=== PATIENT | male | born 1945 | race Caucasian/White ===

== ENCOUNTER 2018-03-20 18:34 | Inpatient (IN) | payer OTHER ==
[~2018-03-20] VITALS: Ht 172.7 cm; Wt 79.9 kg
--- NOTE | ~2018-03-20 | HC ---
[facility] [place] [address] CONSULTATION Name: JOSudhirCYRILMATT Room #: 222-P ADM IN M.R.#: [id number] Admission: 03/20/18 Attend Phys: Baldemar Gomez Discharge: Date of : 45 Report #: [id number] THIS REPORT FOR: //name// CC: Ismael Garza DATE OF SERVICE: 03/23/2018 HISTORY OF PRESENT ILLNESS: The patient is a 73-year-old white male admitted with cough, fever, noted to have pneumonia, COPD exacerbation. He is being treated with respiratory treatments, IV Solu-Medrol, IV Levaquin, and IV vancomycin. He is on nasal prong O2, 1.5 liters. We are seeing him in rehabilitation medicine consultation. PAST MEDICAL HISTORY: Includes mild dementia, venous insufficiency. PAST SURGICAL HISTORY: None. MEDICATIONS: Please see the full medication listing. This includes vitamins, herbals, and supplements. ALLERGIES: None. SOCIAL HISTORY: He has no children. He has a niece, who supervises his care. He lives in an apartment alone. The records indicate it is in an independent living apartment; although, the patient says it is an assisted living facility apartment. He has an elevator. He was premorbidly ambulatory without gait aids. He was not on any oxygen HABITS: Prior tobacco history. No history of alcohol abuse. FAMILY HISTORY: Noncontributory. REVIEW OF SYSTEMS: He notes he is starting to feel better. No current chest pain, shortness of breath, abdominal discomfort. He denies any focal extremity pain complaints. He notes some generalized weakness, but he feels he is starting to do a little better. PHYSICAL EXAMINATION: GENERAL: The patient is a 73-year-old thin white male in no obvious distress. VITAL SIGNS: Last recorded temperature is 97.9, pulse is 61, respirations 20, and blood pressure is 128/64. NEUROLOGIC: He is alert, pleasant, and oriented. Nasal prong O2 is in place. Facies are symmetric. Functional range of motion of both upper extremities with strength grade 4 to 4-/5. DTRs are trace to 1. Lower extremities functional range of motion with strength grade 4 to 4-/5. DTRs are trace to 1. He was standby assistance with sit to stand. He ambulated 250 feet min assist without [address] [address] CONSULTATION Name: MATT RODARTE Room #: 222-P [facility] IN M.R.#: [id number] Admission: 03/20/18 Attend Phys: Baldemar Gomez Discharge: Date of : 45 Report #: [id number] a device. He needs min assist for safety. Lower extremity dressing was max assist. ASSESSMENT: The patient is a 73-year-old white male with the following problem list: 1. Pneumonia. 2. Generalized weakness and debilitation. 3. Chronic obstructive pulmonary disease exacerbation. 4. Functional mobility and ADL deficits. PLAN: The patient is currently on IV Solu-Medrol and IV antibiotics. Insurance will need to be checked regarding rehab therapy options. Thank you for asking us to assist in this patient's care. By: [id number] Curt Mcrae MD /PMT
[2018-03-20 18:35] VITALS: BP 151/70
[2018-03-20 19:58] LABS: HEMOGLOBIN 15.8 gm/dL (14.0-18.0); MCH 28.1 pg (26.0-34.0); MCHC 34.4 g/dL (28.0-37.0); MCV 81.7 fL (80.0-100.0); PLATELET COUNT 345 thou/uL (150-400); RBC 5.62 mil/uL (4.50-6.00); RDW 14.5 % (10.5-14.5); WBC 8.3 thou/uL (4.0-11.0)
[2018-03-20 20:02] LABS: BE(vivo) 0.4 mmol/L (-2 to +3); HCO3 24.2 mmol/L (22.0-26.0); PO2 62.1 mmHg (80.0-100.0); pH 7.434 (7.360-7.450); sO2 92.6 % (92.0-98.0)
[2018-03-20 20:03] LABS: ANION GAP 10 mmol/L (7-16); BUN 20 mg/dL (7-18); CALCIUM 9.9 mg/dL (8.5-10.1); CHLORIDE 99 mmol/L (98-107); CO2 27 mmol/L (21-32); CREATININE 1.1 mg/dL (0.7-1.3); GLUCOSE 110 mg/dL (74-106); POTASSIUM 4.6 mmol/L (3.5-5.1); SODIUM 136 mmol/L (136-145)
[2018-03-20 20:11] LABS: ALBUMIN 4.3 g/dL (3.4-5.0); SGOT 18 U/L (15-37); SGPT 22 U/L (30-65); TOTAL BILIRUBIN 0.9 mg/dL (<0.1-1.0); TOTAL PROTEIN 8.8 g/dL (6.4-8.2); TROPONIN-I <0.06 ng/mL (<0.06)
[2018-03-20 20:27] VITALS: BP 151/70
[2018-03-20 20:31] LABS: ABSOLUTE NEUTROPHILS 6.7 thou/uL (1.4-8.2)
[2018-03-20 21:26] VITALS: BP 138/63
[2018-03-20 23:30] LABS: URINE BILIRUBIN NEGATIVE (Negative); URINE BLOOD NEGATIVE (Negative); URINE CLARITY CLEAR; URINE COLOR YELLOW; URINE GLUCOSE-RANDOM* NEGATIVE (Negative); URINE KETONES NEGATIVE (Negative); URINE LEUKOCYTES-REFLEX NEGATIVE (Negative); URINE NITRITE-REFLEX NEGATIVE (Negative); URINE PROTEIN (DIPSTICK) NEGATIVE (Negative); URINE SPECIFIC GRAVITY >= 1.030 (1.005-1.035); URINE UROBILINOGEN 0.2 E.U./dl (0.2-1.0)
[2018-03-21 03:42] VITALS: BP 114/66
[2018-03-21 03:50] LABS: CALCIUM 8.6 mg/dL (8.5-10.1); CREATININE 1.1 mg/dL (0.7-1.3); POTASSIUM 3.9 mmol/L (3.5-5.1)
[2018-03-21 04:16] LABS: HEMATOCRIT 39.3 % (42.0-52.0); MCHC 33.1 g/dL (28.0-37.0); MCV 81.4 fL (80.0-100.0); RBC 4.83 mil/uL (4.50-6.00); RDW 14.2 % (10.5-14.5); WBC 5.9 thou/uL (4.0-11.0)
--- NOTE | 2018-03-21 05:05 | NUR ---
PT ARRIVED TO UNIT APPROX 2200, ADMISSION AND ASSESSMENT COMPLETED, CONSENTS SIGNED. STARTED ON IV FLUIDS, HUNG IV LEVAQUIN AND VANCO ORDERED BY ER. PT IS A&Ox4, FROM AN ASSISTED LIVING FACILITY, AMBULATES WITH A WALKER. SOA WITH MINIMAL EXERTION, LUNG SOUNDS WHEEZY WITH COARSE CRACKLES IN MID-LUNG, ON 2L O2, NORMALLY ON RA. FREQUENT DRY COUGH OVERNIGHT, PT KEEPING HOB ABOVE 20 DEGREES. PT DENIES ANY PAIN OR NAUSEA, REPORTS FEELING FATIGUED. OBTAINED ORDERS FOR RT TREATMENTS, ABX, AND PAIN/NAUSEA MEDS FROM DR. MIX. SENT UA TO LAB. SECOND LACTIC ACID RESULTED CRITICAL HIGH AT 4.5, REPORTED TO DR. MIX, NO ORDERS RECEIVED, REDRAW WAS 2.1. INITIALLY ST IN LOW 100'S, SINUS ARRHYTHMIA WITH PAC'S; HR NOW 80'S, STILL IRREGULAR, SA. NO OTHER CONCERNS, WILL CONTINUE TO MONITOR.
--- NOTE | 2018-03-21 08:25 | EKG ---
[place] [address] [facility] [place] [address] ELECTROCARDIOGRAM REPORT Name: MATT RODARTE Room #: 457-P ADM IN M.R.#: [id number] Admission: 03/20/18 Attend Phys: Baldemar Gomez Discharge: Date of : 45 Report #: [id number] THIS REPORT FOR: //name// [facility] ED Test Date: 2018-03-20 Test Time: 20:10:29 Pat Name: MATT RODARTE Department: Room: [facility] Gender: M Supervisor Whipped Topping: JM : 1945 Requested By: Berenice De La Garza Order Number: [id number] MD: Oral Owens Measurements Intervals [place] Rate: 93 P: 53 WY: 159 QRS: -27 QRSD: 97 T: 93 QT: 312 QTc: 388 Interpretive Statements Sinus rhythm Multiple premature complexes, supraven Borderline left axis deviation Abnormal R-wave progression, early transition Nonspecific ST and T wave abnormality No previous ECG available for comparison Electronically Signed On 03-21-2018 8:25:25 HYDRO EXCAVATION OPERATOR by Oral Owens [email or web address] <ELECTRONICALLY SIGNED> By: Oral Owens MD, [facility] 03/21/18 0825 09 09 Oral Owens MD, [facility] /EPI
[2018-03-21 10:07] VITALS: BP 121/58
--- NOTE | 2018-03-21 11:30 | NUR ---
Assumed pt care at 645. pt was resting at this time. a/ox4 with no issues or concerns. pt has cough with no production, still awaiting sputum sample. will continue to montior.
--- NOTE | 2018-03-21 14:54 | NUR ---
PT ADMITTED RELATED TO PNEUMONIA, CHEST CONGESTION. CM REVIEWED CHART AND SPOKE WITH CARE TEAM. CM MET WITH PT AND SISTER/DPOA AT BEDSIDE THIS DAY. PT IS A&O X4. CM ROLE INTRODUCED. PT INDICATED HE LIVES IN AN INDEPENDENT LIVING APARTMENT AT [facility]. 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 THEY INDICATED NO DME OR HH HX. THEY INDICATED THAT THEY ANTICIPATE [place] RETURNING TO [place]ARTMENT ONCE MEDICALLY STABLE. THEY INDICATED THAT CLINICAL IN FOR COULD BE SENT TO THE FACILITY FOR REVIEW. CM TO FOLLOW INDICATED WITH DC PLANNING.
--- NOTE | 2018-03-21 15:03 | NUR ---
PT ADMITTED RELATED TO PNEUMONIA, CHEST CONGESTION. CM REVIEWED CHART AND SPOKE WITH CARE TEAM. CM MET WITH PT AND SISTER/DPOA AT BEDSIDE THIS DAY. PT IS A&O X4. CM ROLE INTRODUCED. THEY INDICATED PT LIVES IN AN INDEPENDENT LIVING APARTMENT AT [facility]. 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 PT INDICATED NO DME OR HH HX. CARE TEAM INDICATED THAT THEY ANTICPATE PT RETURNING TO [facility] ONCE MEDICALLY STABLE. CM CALLED AND SPOKE WITH STAFF AT [facility] TO ASK IF THEY NEEDED TO ACCESS PT PRIOR TO HIS RETURN AND THEY INDICATED THEY DIDN'T. CM TO FOLLOW INDICATED WITH DC PLANNING.
[2018-03-21 15:29] VITALS: BP 129/69
[2018-03-21 19:25] VITALS: BP 140/71
--- NOTE | 2018-03-22 02:48 | NUR ---
PT SLEPT THROUGH MOST OF THE NIGHT PT USED CALL LIGHT EFFECTIVELY NO ISSUES OVERNIGHT.
[2018-03-22 05:14] VITALS: BP 124/59
[2018-03-22 05:15] VITALS: BP 151/54
[2018-03-22 07:35] VITALS: BP 121/73
--- NOTE | 2018-03-22 10:31 | H ---
[facility] [place] [place] [address] HISTORY AND PHYSICAL Name: MATT RODARTE Room #: 457-P ADM IN M.R.#: [id number] Admission: 03/20/18 Attend Phys: Baldemar Gomez Discharge: Date of : 45 Report #: [id number] THIS REPORT FOR: //name// CC: Ismael Garza DATE OF SERVICE: 03/20/2018 CHIEF COMPLAINT: Cough and shortness of breath. HISTORY OF PRESENT ILLNESS: The patient is a 73-year-old gentleman who was transferred from his senior independent apartment for evaluation of cough, congestion and mild fever. There was report that for 1-2 days, he has had some body aches, nausea, cough, fever, and congestion. No documented temperature was taken. He was evaluated through the Emergency Room and admitted for pneumonia. PAST MEDICAL HISTORY: Mild dementia, venous insufficiency. PAST SURGICAL HISTORY: None. FAMILY HISTORY: Unknown. SOCIAL HISTORY: He has no children. He has a niece that supervises his care here in town. Prior tobacco history, but no alcohol history. ALLERGIES: None. MEDICATIONS: None. REVIEW OF SYSTEMS: He denies headache, chest pain, shortness of breath, abdominal pain, nausea, vomiting, diarrhea, constipation, dysuria, syncope. OBJECTIVE: VITAL SIGNS: Temperature 37.6, pulse 76, respirations 20, blood pressure 121/58, O2 sat 93% on 2 liters. GENERAL: He is an elderly man. He is asleep, but arousable, in no distress. HEAD AND NECK: Unremarkable. LUNGS: Has some scattered rhonchi in the bases. HEART: Regular. ABDOMEN: Soft, normoactive bowel sounds. EXTREMITIES: There is 1+ edema. There is some plaque. Skin changes of venous stasis on the left lower leg. NEUROLOGIC: His cranial nerves intact. Speech is fluent. Motor strength 4/5 throughout. LABORATORY AND X-RAY: Reviewed. [facility] [address] [place] [address] HISTORY AND PHYSICAL Name: MATT RODARTE Room #: 457-P [facility] IN [facility].#: [id number] Admission: 03/20/18 Attend Phys: Baldemar Gomez Discharge: Date of : 45 Report #: [id number] ASSESSMENT: 1. Pneumonia. 2. Venous insufficiency. PLAN: I will continue his empiric antibiotic coverage with Levaquin and vancomycin. He lives in an independent senior apartment, so consider more just community-acquired pneumonia coverage at this point. <ELECTRONICALLY SIGNED> By: Curt Dia MD 03/22/18 1031 1301 1310 Curt Dia MD /nt
--- NOTE | 2018-03-22 13:44 | NUR ---
TOWARDS POC PT A/O X4, VSS, AFEBRILE, DENIES PAIN. PT RECEIVING SCHEDULE BREATHING TX. REMAIN ON 2L O2. NO CONCERNS VOICED. WILL CONTINUE TO MONITOR.
--- NOTE | 2018-03-22 15:11 | NUR ---
PT ASSESSED AND INDICATED THAT THEY WANTED TO COMPLETE ONGOING ASSESSMENT TO RETERMINE IF THEY FELT PT COULD RETURN HOME WITH HOME HEALTH OR NEED A POST ACUTE CARE STAY. 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 CM CALLED AND SPOKE WITH SISTER/DPOA AND SHE INDICATED THAT THEY ARE RECEPTIVE TO POST ACUTE IF RECOMMENDED OR AT LEAST HOME HEALTH SERVICES. CM INDICATED CM WOULD FOLLOW INDICATED WITH DC PLANNING.
[2018-03-22 15:52] VITALS: BP 128/71
[2018-03-22 20:39] VITALS: BP 131/68
--- NOTE | 2018-03-23 03:36 | NUR ---
PT RESTED THROUGHOUT THE NIGHT WITH NO ISSUES OR COMPLAINTS OF PAIN PT USED CALL LIGHT EFFECTIVELY NO ISSUES OVERNIGHT.
[2018-03-23 04:14] VITALS: BP 128/64
[2018-03-23 05:36] LABS: HEMATOCRIT 41.6 % (42.0-52.0); HEMOGLOBIN 14.3 gm/dL (14.0-18.0); MCH 27.8 pg (26.0-34.0); MCHC 34.4 g/dL (28.0-37.0); MCV 80.8 fL (80.0-100.0); RBC 5.15 mil/uL (4.50-6.00); RDW 14.5 % (10.5-14.5); WBC 3.7 thou/uL (4.0-11.0)
[2018-03-23 05:56] LABS: CALCIUM 8.9 mg/dL (8.5-10.1); POTASSIUM 4.1 mmol/L (3.5-5.1)
[2018-03-23 14:06] VITALS: BP 137/69
--- NOTE | 2018-03-23 16:09 | NUR ---
5N INDICATED THAT INSURANCE WILL LIKELY NOT AUTH ACUTE REHAB AND RECOMMENDED THAT WE PURSUE SKILLED OPTIONS WITH PT AND FAMILY FOR POSSIBLE DC WEDNESDAY. CM TO DISCUSS WITH PT AND SISTER/DPOA. CM TO FOLLOW INDICATED WITH DC PLANNING.
--- NOTE | 2018-03-23 17:22 | NUR ---
TOWARDS POC PT A/O X4, VSS, AFEBRILE, DENIES PAIN. NO SOA. REMAINED ON 1.5L O2. NO CONCERNS VOICED. PT TELE DC'D PER PHYSICIAN. PT TO XFER TO SENIOR SUITE. REPORT CALLED APPROPRIATELY.
--- NOTE | 2018-03-23 18:39 | NUR ---
PATIENT TRANSFERRED TO UNIT. REPORT GIVEN BY NURSE ROM. PATIENT ORIENTED AND SETTLED. CALL LIGHT AND BELONGINGS WITHIN REACH.
[2018-03-23 19:09] VITALS: BP 123/57
[2018-03-23 21:05] VITALS: BP 142/64
--- NOTE | 2018-03-24 05:05 | NUR ---
PATIENT ALERT AND ORIENTED X4. LLEXT SCALEY. DRESSING TALEN OFF AMD ;EFT OPEN TO AIR. HAD MOIST AREA ON LEG BUT IS NOT DRY. O2 SAT AT BEGINNING OF SHIFT WAS ONLY 89. PUT ON 2 LITERS OF O2. PATIENT UP IN ROOM. DENIES PAIN. SLEPT OFF AND ON DURING NIGHT.
[2018-03-24 08:30] VITALS: BP 134/71
--- NOTE | 2018-03-24 09:10 | NUR ---
PT IS A&0X4, AMB STEADY, USES CALL LIGHT FOR NEEDS, OFF 02, SATTING WNL, EDUCATION GIVEN ON DEEP SLOWING BREATHING AND SITTING AT EDGE OF BED BEFORE RISING, ENCOURAGED HIM TO USE CALL LIGHT FOR ANY NEEDS. AM CREAM NOT IN ROOM, NOR PYXIS, SENT NOTE TO RX
--- NOTE | 2018-03-24 12:29 | NUR ---
TITUS reviewed chart and spoke with nursing and attending physician. [facility] and is progressing towards goals for discharge. Discharge to SNF is anticipated for tomorrow pending insurance authorization. TITUS met with pt and family at bedside to discuss post-acute placement. Pt and family SNF preferences are [facility], [facility] and [facility]. TITUS spoke with Alyssa in admissions at [facility], who states they will not have any male beds available until next week. TITUS spoke with Prabha in admissions at [facility] and Kia in admissions at [facility], who both state they will have beds available. TITUS met with pt and family at bedside to provide update. Pt and family's choice is [facility]. TITUS faxed clinical and therapy info to the facility for review. Awaiting call back from facility at this time. TITUS is following to assist as needed with discharge planning.
--- NOTE | 2018-03-24 18:29 | NUR ---
CALL LIGHT: PT'S CALL LIGHT IS NOT WORKING YET CONTROLS FOR TELEVISION AND LIGHTS ARE SUCCESSFUL. CALL LIGHT WORKS ON THE BEDRAILS AND HE HAS BEEN USING THESE. ENTERED WORK ORDER AROUND 0 AND WILL ALERT NIGHT STAFF, HE ALSO HAS A DC AT HIS TABLE
[2018-03-24 18:53] VITALS: BP 122/91
--- NOTE | 2018-03-25 04:11 | NUR ---
ASSUMED CARE OF PATIENT AT 1900. VSS. ASSESSMENT COMPLETED AT 2021 AND IS DOCUMENTED. PT UP IN THE MIDDLE OF THE NIGHT TO AMBULATE IN THE HALLWAY, AND THEN BACK TO BED. LEFT FA PIV INFUSED IV ABT WITHOUT COMPLICATION AND IS CURRENTLY SALINE LOCKED. PT DENIES PAIN THIS SHIFT. PT CURRENTLY SLEEPING SOUNDLY IN BED IN NO ACUTE DISTRESS. CALL LIGHT WITHIN REACH. BED LOCKED AND IN LOWEST POSITION. WCTM.
[2018-03-25 08:18] VITALS: BP 112/66
--- NOTE | 2018-03-25 08:24 | NUR ---
ASSUMED PT CARE AT 0700. ASSESSMENT COMPLETED AND IS CHARTED. VSS. HEART WAS FOUND TO BE IRREGULAR. PT IS AWAKE, ALERT/ORIENTED X4. REPORTS SOME CHEST DISCOMFORT RATED 5/10. REPORTS A NON-PRODUCTIVE COUGH. ALSO REPORTS SOME SHORTNESS OF BREATH AT REST. DOES NOT APPEAR IN ANY ACUTE DISTRESS AT THIS TIME. PT IS ON ROOM AIR O2. WILL CONTINUE TO MONITOR.
[2018-03-25] MEDS ORDERED: LEVAQUIN 7750 MG/152 IV (08:25)
[2018-03-25] MEDS ORDERED: PREDNISONE 20 M20 MG PO (08:27)
[2018-03-25] MEDS ORDERED: TRIAMCINOLONE A15 G3 TOP (08:27)
[2018-03-25] MEDS ORDERED: ACETAMINOPHEN325 M1 PO (08:27)
[2018-03-25] MEDS ORDERED: IPRAT-ALBUT 0.5-3 ML INH (08:29)
--- NOTE | 2018-03-25 08:47 | NUR ---
DISCHARGE PLANNING. ANTICIPATED DISCHARGE TODAY TO [facility] UNIT, PENDING INSURANCE AUTH. CALL PLACED TO DINGLE TO NOTIFY THAT PATIENT WILL BE DISCHARGING TO [facility] ON IV ABX FOR 5-7 DAYS LONGER POST DISCHARGE FROM HOSPITAL. DISCHARGE ORDERS AND DISCHARGE SUMMARY FAXED TO [facility], VERIFIED RECEIVED. CHART COPY COMPLETED PER DEVELOPMENT WRITER. WILL FACILITATE TRANSPORTATION ONCE INSURANCE AUTH OBTAINED. UNIT SW AWARE.
--- NOTE | 2018-03-25 09:48 | NUR ---
DISCHARGE NOTE: TITUS reviewed chart and spoke with nursing and attending physician. Pt is medically stable for discharge to post-acute today. Discharge orders faxed to [facility]. TITUS left voice message for admissions at the facility. Chart copy ordered. Awaiting insurance authorization and transportation time. TITUS is following to assist as needed with discharge planning.
--- NOTE | 2018-03-25 12:00 | NUR ---
PT DOING WELL. UP AND AROUND IN ROOM. NO NEW CONCERNS OR COMPLAINTS.
--- NOTE | 2018-03-25 15:50 | NUR ---
DISMISSED PT IN STABLE CONDITION VIA [facility] TRANSPORTATION [facility] WITH IV IN PLACE.
== END 2018-03-25 15:51 | DRG 193 ==
LOC: ER 18:34 → 4W 20:58 → EROBS 20:58 → 4W 21:38 → SICU 03-23 18:39
PROVIDERS: Internal Medicine Geriatric Medicine; Physician Assistant; ADMIT Internal Medicine
DX: J18.9 Pneumonia, unspecified organism (principal); J96.00 Acute respiratory failure, unspecified whether with hypoxia or hypercapnia; J44.1 Chronic obstructive pulmonary disease with (acute) exacerbation; J44.0 Chronic obstructive pulmonary disease with (acute) lower respiratory infection; Y95 Nosocomial condition; F03.90 Unspecified dementia, unspecified severity, without behavioral disturbance, psychotic disturbance, mood disturbance, and anxiety; R26.9 Unspecified abnormalities of gait and mobility; I87.2 Venous insufficiency (chronic) (peripheral); Z87.891 Personal history of nicotine dependence; Z79.899 Other long term (current) drug therapy
CPT/HCPCS: 10045; 15002

== ENCOUNTER 2020-07-03 20:14 | Emergency (ER) | payer MEDICARE ==
[~2020-07-03] VITALS: Ht 172.7 cm; Wt 68.5 kg
[~2020-07-03 20:14] MED LIST: ACETAMINOPHEN325 M1 PO; IPRAT-ALBUT 0.5-3 ML INH; LEVAQUIN 7750 MG/152 IV; PREDNISONE 20 M20 MG PO; TRIAMCINOLONE A15 G3 TOP
[2020-07-03 21:03] LABS: ABSOLUTE NEUTROPHILS 4.5 thou/uL (1.4-8.2); EOSINOPHILS 11.5 % (0.0-3.0); HEMATOCRIT 41.2 % (42.0-52.0); HEMOGLOBIN 13.8 gm/dL (14.0-18.0); LYMPHOCYTES 20.1 % (24.0-44.0); MCH 29.1 pg (26.0-34.0); MCHC 33.6 g/dL (28.0-37.0); MCV 86.6 fL (80.0-100.0); MONOCYTES 12.3 % (1.0-8.0); PLATELET COUNT 332 thou/uL (150-400); POLYS 55.1 % (36.0-66.0); RBC 4.76 mil/uL (4.50-6.00); RDW 14.6 % (10.5-14.5); WBC 8.2 thou/uL (4.0-11.0)
[2020-07-03 21:12] LABS: CREATININE 1.3 mg/dL (0.7-1.3)
[2020-07-03 21:18] LABS: ALBUMIN 3.3 g/dL (3.4-5.0); TOTAL BILIRUBIN 0.3 mg/dL (0.2-1.0)
[2020-07-03] MEDS ORDERED: KLOR-CON 1010 MEQ PO (21:30)
[2020-07-03] MEDS ORDERED: MILK OF MA400 MG/5 M PO (21:30)
[2020-07-03] MEDS ORDERED: LASIX 20 MG TAB20 MG PO (21:31)
[2020-07-03] MEDS ORDERED: PROAIR HFA8.5 GM INH (21:32)
[2020-07-03] MEDS ORDERED: ATIVAN0.5 M1 PO (21:32)
[2020-07-03 21:46] LABS: URINE BILIRUBIN NEGATIVE (Negative); URINE BLOOD NEGATIVE (Negative); URINE CLARITY CLEAR; URINE COLOR YELLOW; URINE GLUCOSE-RANDOM* NEGATIVE (Negative); URINE KETONES NEGATIVE (Negative); URINE LEUKOCYTES-REFLEX NEGATIVE (Negative); URINE NITRITE-REFLEX NEGATIVE (Negative); URINE PROTEIN (DIPSTICK) NEGATIVE (Negative)
[2020-07-03] MEDS ORDERED: DOXYCYCLINE 10100 MG PO (22:32)
[2020-07-03] MEDS ORDERED: MEDROLDOSEPACK PO (22:32)
[2020-07-04 01:11] VITALS: BP 138/73
== END 2020-07-04 01:11 | disposition home or self-care (01) ==
LOC: ER 20:14
PROVIDERS: Nurse Practitioner
DX: J44.1 Chronic obstructive pulmonary disease with (acute) exacerbation (principal); Z20.822 Contact with and (suspected) exposure to COVID-19; F17.210 Nicotine dependence, cigarettes, uncomplicated; Z90.89 Acquired absence of other organs